=== PATIENT | male | born 1975 | race Caucasian/White ===

== ENCOUNTER 2023-01-06 17:01 | Emergency (ER) | payer SELFPAY ==
[~2023-01-06] VITALS: Ht 170.2 cm; Wt 68.0 kg
[2023-01-06 17:07] VITALS: TEMP 98.9; O2SAT 98
[2023-01-06] MEDS ORDERED: ONDANSETRON HCL 4MG/2ML INJ IV ONE (17:30)
[2023-01-06] MEDS ORDERED: SODIUM CHLORIDE 0.9% 1,000 ML IV ONE (17:30)
[2023-01-06] MEDS ORDERED: KETOROLAC 30MG/ML VIAL IV ONE (17:30)
[2023-01-06 18:02] LABS: BASOPHILS % 1.1 % (0.0-2.0); HEMATOCRIT. 40.2 % (42.0-52.0); HEMOGLOBIN. 13.9 g/dL (14.0-18.0); LYMPHOCYTES % 15.4 % (20.0-50.0); MEAN CORPUSCULAR HEMOGLOBIN 29.4 pg (28.0-32.0); MEAN CORPUSCULAR HGB CONC 34.5 g/dL (31.0-37.0); MEAN CORPUSCULAR VOLUME 85.3 fL (80.0-94.0); MEAN PLATELET VOLUME 9.3 fl (7.4-10.4); MONOCYTES % 9.4 % (2.0-8.0); NEUTROPHILS % 74.1 % (40.0-76.0); PLATELET 253 x1000/uL (130-400); RED BLOOD CELL COUNT 4.71 mill/uL (4.7-6.1); RED CELL DISTRIBUTION WIDTH 14.6 % (11.6-14.6); WHITE BLOOD COUNT 12.1 x1000/uL (4.5-11.0)
[2023-01-06 18:11] LABS: PROTHROMBIN TIME 10.4 sec (9.6-11.0)
[2023-01-06 18:12] LABS: CHLORIDE 103 mEq/L (98-107); INDEX HEMOLYSI 1 (1-3); INDEX ICTERIC 1 (1-4); INDEX LIPEMIC 1 (1-3); POTASSIUM 3.2 mEq/L (3.5-5.1); SODIUM 138 mEq/L (136-145)
[2023-01-06 18:22] LABS: ALANINE AMINOTRANSFERASE 20 IU/L (13-61); ASPARTATE AMINOTRANSFERASE 21 IU/L (15-37); BILIRUBIN TOTAL 1.3 mg/dL (0.1-1.0); CALCIUM 8.3 mg/dL (8.5-10.1); CARBON DIOXIDE 21 mEq/L (21-32); CREATININE 1.2 mg/dL (0.6-1.3); ETHANOL BLOOD < 10 mg/dL (<10); GLUCOSE 138 mg/dL (70-105); PROTEIN TOTAL 7.9 g/dL (6.0-8.3); UREA NITROGEN BLOOD 22 mg/dL (7-21)
[2023-01-06] MEDS ORDERED: POTASSIUM CHLORIDE 20MEQ/PACKET PO NR (18:30)
[2023-01-06 19:15] VITALS: BP 116/59; PULSE 122; RESP 16
[2023-01-06] MEDS ORDERED: ONDANSETRON HCL 4MG/2ML INJ IV NR (19:15)
[2023-01-06] MEDS ORDERED: KETOROLAC 30MG/ML VIAL IV NR (19:15)
[2023-01-06 19:47] LABS: CLARITY URINE CLOUDY (CLEAR); COLOR URINE YELLOW (YELLOW); GLUCOSE URINE NEGATIVE (NEGATIVE); KETONES URINE 2+ (NEGATIVE); LEUKOCYTE ESTERASE URINE 2+ (NEGATIVE); NITRITE URINE NEGATIVE (NEGATIVE); OCCULT BLOOD URINE NEGATIVE (NEGATIVE); PH URINE >=9.0 (4.5-8.0); PROTEIN URINE 1+ (NEGATIVE)
[2023-01-06 19:58] LABS: RBC URINE NONE SEEN /hpf (0-2); SQUAMOUS EPITHELIAL CELL URINE 1+ /lpf (RARE/1+)
[2023-01-06 19:59] LABS: BACTERIA URINE NONE SEEN
[2023-01-06] MEDS ORDERED: MAGNESIUM/ALUMINUM HYDROXIDE/SIMETHICONE 30ML UDC PO ONE (20:00)
[2023-01-06] MEDS ORDERED: FAMOTIDINE 20MG TABLET PO ONE (20:00)
[2023-01-06] MEDS ORDERED: CEFTRIAXONE 1GM PREMIX 50 ML IV NR (20:04)
[2023-01-06] MEDS ORDERED: CEFP200T13 MT (20:46)
== END 2023-01-06 22:55 | disposition home or self-care (01) ==
LOC: ER 17:18
DX: K42.9 Umbilical hernia without obstruction or gangrene (principal)
CPT/HCPCS: 80053; 81003; 80320; 83690; 85025; 85610; 86850; 86900; 86901; 87086; 36415; 96361; 96374; 96375; 96376; 99284; J1885; J2405; J7030; Z7610 ×2; G0480